=== PATIENT | male | born 1980 | race Caucasian/White ===

== ENCOUNTER 2017-02-10 08:48 | Day surgery (SDC) | payer BC ==
[~2017-02-10] VITALS: Ht 180.3 cm; Wt 108.1 kg
[~2017-02-10 08:48] MED LIST: ALLOPURINOL300 MG PO; CATAPRES PO; CLONAZEPAM2 MG PO; FLOMAX 0.40.4 MG/CAP PO; KLONOPIN2 MG PO; LEVAQUIN 750MG750 MG PO; METRONIDAZOLE500 MG PO; NORCO 325 MG-51 TAB PO; PERCOCET 325 MG1 TA3 PO; PRILOSEC 20MG20 MG PO; PROAIR HFA0.09 MG/AC IH; TOPROL XL 50MG50 MG PO; TORADOL 10MG TA10 MG PO; TORADOL10 MG PO; TRAZODONE HCL100 MG PO; ZOFRAN 4MG T4 MG/TAB PO; ZOFRAN ODT4 MG PO; ZOLOFT 100MG100 MG PO
[2017-02-10 09:22] VITALS: PULSE 97; TEMP 98
[2017-02-10 10:18] LABS: INR 1.2 (0.8-3.0); PROTHROMBIN TIME 13.1 SECONDS (9.7-12.8)
[2017-02-10] MEDS ORDERED: MULTIPLE VITAMI1 CAP PO (10:54)
[2017-02-10] MEDS ORDERED: NATURAL MAGNES200 MG PO (10:54)
[2017-02-10] MEDS ORDERED: TYLENOL 500MG500 MG PO (10:55)
[2017-02-10] MEDS ORDERED: PERCOCET 325 MG1 TA2 PO (10:56)
[2017-02-10 15:43] VITALS: BP 124/80; PULSE 81
[2017-02-10 15:58] VITALS: BP 136/86; PULSE 79
[2017-02-10 16:13] VITALS: BP 134/79; PULSE 81
== END 2017-02-10 16:43 | disposition home or self-care (01) ==
LOC: SDCO 08:48
PROVIDERS: Urology
DX: N20.0 Calculus of kidney (principal); K21.9 Gastro-esophageal reflux disease without esophagitis; I10 Essential (primary) hypertension; F17.210 Nicotine dependence, cigarettes, uncomplicated; F32.9 Major depressive disorder, single episode, unspecified; F41.9 Anxiety disorder, unspecified; K57.30 Diverticulosis of large intestine without perforation or abscess without bleeding; R31.9 Hematuria, unspecified; Z84.1 Family history of disorders of kidney and ureter; Z80.9 Family history of malignant neoplasm, unspecified; Z82.49 Family history of ischemic heart disease and other diseases of the circulatory system
CPT/HCPCS: J0690; J1200; J1885; J2405; J2704; J2765; J3010; J7120

== ENCOUNTER → 2020-02-20 | Emergency (ER) | payer BC ==
[~2020-02-20] VITALS: Ht 180.3 cm; Wt 108.2 kg
[~2020-02-20] MED LIST changes: +MULTIPLE VITAMI1 CAP PO; +NATURAL MAGNES200 MG PO; +PERCOCET 325 MG1 TA2 PO; +TYLENOL 500MG500 MG PO
[2020-02-20 09:46] VITALS: BP 132/84; PULSE 95; TEMP 97.7
== END ==
LOC: COL.ER 09:23
DX: M54.5 Low back pain (principal); Z53.21 Procedure and treatment not carried out due to patient leaving prior to being seen by health care provider

== ENCOUNTER 2020-10-12 19:36 | Observation (INO) | payer OTHER ==
[~2020-10-12] VITALS: Ht 180.3 cm; Wt 109.1 kg
[2020-10-12 20:16] LABS: BASO % 0.3 % (0.0-2.0); EOS # 0.1 (0.0-0.7); GRAN # 6.7 (1.4-6.5); GRAN % 58.3 % (42.2-75.2); HEMATOCRIT 42.1 % (42.0-52.0); HEMOGLOBIN 14.2 g/dl (13.5-18.0); LYMPH # 3.9 (1.2-3.4); LYMPH % 33.6 % (20.0-51.0); MEAN CELL VOLUME 91 fl (80.0-100.0); MEAN CORPUSCULAR HEMOGLOBIN 31 pg (27.0-31.0); MEAN CORPUSCULAR HGB CONC 34 g/dl (33.0-37.0); MEAN PLATELET VOLUME 9.4 fl (7.4-10.4); MONO # 0.7 (0.1-0.6); MONO % 5.6 % (1.7-9.3); PLATELET COUNT 296 K/mm3 (130-400); RED BLOOD COUNT 4.64 M/mm3 (4.20-5.60); REDCELL DISTRIBUTION WIDTH-CV 14.1 % (11.5-14.5)
[2020-10-12 20:20] LABS: INR 1.1 (0.8-3.0); PROTHROMBIN TIME 12.2 SECONDS (9.7-12.8)
[2020-10-12 20:24] LABS: ALANINE AMINOTRANSFERASE 39 U/L (4-49); ALKALINE PHOSPHATASE 86 U/L (50-136); ANION GAP 13 mmol/L (7-16); AST,SGOT 33 U/L (15-37); BILIRUBIN,TOTAL 0.1 mg/dL (0.0-1.0); BLOOD UREA NITROGEN 20 mg/dL (9-20); CALCIUM 8.3 mg/dL (8.4-10.2); CARBON DIOXIDE 20 mmol/L (22-30); CHLORIDE 106 mmol/L (98-107); CREATININE, serum 1.45 (0.66-1.25); GLUCOSE 130 mg/dL (74-106); POTASSIUM 3.4 mmol/L (3.4-5.0); SODIUM 139 mmol/L (137-145); TOTAL PROTEIN 6.7 gm/dL (6.4-8.2)
[2020-10-12 20:30] LABS: COLLECTION METHOD CLEAN CATCH
[2020-10-12 20:36] LABS: TROPONIN-I < 0.012 ng/mL (0.000-0.035)
[2020-10-12 20:37] LABS: MUCOUS Present /lpf; PH 7 (5-8); SQUAMOUS EPITHELIAL None Seen /hpf; URINE APPEARANCE Hazy; URINE BACTERIA None Seen /hpf; URINE BILIRUBIN Negative (NEGATIVE); URINE BLOOD Negative (NEGATIVE); URINE COLOR Yellow; URINE GLUCOSE Negative (NEGATIVE); URINE KETONE Negative (NEGATIVE); URINE LEUKOCYTE ESTERASE Negative (NEGATIVE); URINE NITRATE Negative (NEGATIVE); URINE PROTEIN(semi-quant) Negative (NEGATIVE); URINE RBC 0-2 /hpf
[2020-10-12] MEDS ORDERED: CYMBALTA 30MG30 MG PO (21:14)
[2020-10-12] MEDS ORDERED: CHANTIX 1MG1 MG PO (21:15)
[2020-10-12] MEDS ORDERED: NORVASC 5MG5 MG/TAB PO (21:16)
[2020-10-12] MEDS ORDERED: PRINIVIL20 MG PO (21:16)
--- NOTE | 2020-10-12 22:25 | NUR ---
DOREEN Fernández at bedside.
[2020-10-12 22:57] VITALS: BP 140/85; PULSE 100; TEMP 98.6
[2020-10-12] MEDS ORDERED: PROAIR HFA0.09 MG/AC IH (23:17)
[2020-10-12 23:21] LABS: CHOLESTEROL 122 mg/dL (120-200); CHOLESTEROL RISK RATIO 3.2; HDL CHOLESTEROL 38 mg/dL; LDL CHOLESTEROL 39 mg/dL; TRIGLYCERIDE 226 mg/dL
[2020-10-13 01:10] VITALS: BP 110/68; PULSE 90; TEMP 97.8
--- NOTE | 2020-10-13 01:10 | NUR ---
Called with c/o headache. Rating pain 4/10 on pain scale-described as dull ache. VS checked-BP 110/58, HR 90, resp 18 and O2 96%. Tylenol given per dr order. Will continue to monitor.
[2020-10-13 04:02] VITALS: BP 123/66; PULSE 82; TEMP 97.7
[2020-10-13 06:10] LABS: BASO % 0.4 % (0.0-2.0); EOS # 0.2 (0.0-0.7); EOS % 1.7 % (0-4.0); GRAN # 5.2 (1.4-6.5); GRAN % 53.7 % (42.2-75.2); LYMPH # 3.6 (1.2-3.4); LYMPH % 37.6 % (20.0-51.0); MEAN CELL VOLUME 92 fl (80.0-100.0); MEAN CORPUSCULAR HGB CONC 32 g/dl (33.0-37.0); MONO # 0.6 (0.1-0.6); MONO % 5.9 % (1.7-9.3); PLATELET COUNT 217 K/mm3 (130-400); RED BLOOD COUNT 3.99 M/mm3 (4.20-5.60); REDCELL DISTRIBUTION WIDTH-CV 13.8 % (11.5-14.5)
[2020-10-13 06:12] LABS: HEMATOCRIT 36.7 % (42.0-52.0); HEMOGLOBIN 11.8 g/dl (13.5-18.0); MEAN CORPUSCULAR HEMOGLOBIN 30 pg (27.0-31.0)
--- NOTE | 2020-10-13 06:13 | NUR ---
Slept off and on this shift. Denies chest pain/shortenss of breath/nausea. VS remained stable. Did c/o headache with good pain relief from tylenol. NS continues to infuse @75ml/hr to right AC INT. Denies current needs/questions/concerns. Call light in reach. Will monitor.
[2020-10-13 06:24] LABS: ANION GAP 8 mmol/L (7-16); BLOOD UREA NITROGEN 17 mg/dL (9-20); CALCIUM 7.8 mg/dL (8.4-10.2); CARBON DIOXIDE 24 mmol/L (22-30); CHLORIDE 107 mmol/L (98-107); GLUCOSE 92 mg/dL (74-106); POTASSIUM 3.4 mmol/L (3.4-5.0); SODIUM 138 mmol/L (137-145)
[2020-10-13 06:34] LABS: TROPONIN-I < 0.012 ng/mL (0.000-0.035)
[2020-10-13 07:25] VITALS: BP 119/76; PULSE 84; TEMP 97.6
[2020-10-13] MEDS ORDERED: ASPIRIN E.C. 8181 MG PO (10:13)
[2020-10-13] MEDS ORDERED: NITROSTAT0.3 MG SL (10:13)
--- NOTE | 2020-10-13 10:34 | NUR ---
SW met with patient to complete intake. Patient provides that he lives in [place] with is [place] [phone]. Patient provides that he does not utilize any DME and is independent with ADL's. Patient provides that his PCP is Dr. Portillo and states that he obtains his medications from [facility] in [place] and is able to afford his medications. Patient provides that he does not have anyone specifically appointed as his DPOA-HC and did not wish to appoint anyone at this time. Patient provides that his plan is to return back to his home [place], and did not have any questions or concerns with doing so. SW will continue to follow.
[2020-10-13 11:18] VITALS: BP 130/78; PULSE 89; TEMP 98.2
--- NOTE | 2020-10-15 11:03 | NUR ---
Patient called in today requesting assistance with cardiology f/u. 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 I offered the patient the contact information for [facility] and [facility] and he stated he would call them and see who could get him in for f/u. All questions were answered.
== END 2020-10-13 11:50 | disposition home or self-care (01) ==
LOC: COL.ER 19:36 → MEDICAL 20:57 → EDBEDREQ 21:29 → MEDICAL 10-13 11:50
PROVIDERS: Emergency Medicine; Student in an Organized Health Care Education/Training Program; ADMIT Student in an Organized Health Care Education/Training Program
DX: R07.9 Chest pain, unspecified (principal); R06.00 Dyspnea, unspecified; N17.9 Acute kidney failure, unspecified; I10 Essential (primary) hypertension; F32.9 Major depressive disorder, single episode, unspecified; F41.9 Anxiety disorder, unspecified; K21.9 Gastro-esophageal reflux disease without esophagitis; J45.909 Unspecified asthma, uncomplicated; F17.210 Nicotine dependence, cigarettes, uncomplicated; Z79.899 Other long term (current) drug therapy
CPT/HCPCS: 99223-AI; G0378; J1644; J7030